=== PATIENT | male | born 1985 | race Caucasian/White ===

== ENCOUNTER 2017-08-12 13:32 | Emergency (ER) | payer BC, OTHER ==
[2017-08-12 14:23] VITALS: BP 136/86
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
[2017-08-12] MEDS ORDERED: Lidocaine 1% 10 ML MDV INJECT ONE (14:40)
== END 2017-08-12 16:03 | disposition home or self-care (01) ==
LOC: JD.ED 13:32
DX: S61.211A Laceration without foreign body of left index finger without damage to nail, initial encounter (principal); F17.210 Nicotine dependence, cigarettes, uncomplicated; W45.8XXA Other foreign body or object entering through skin, initial encounter
CPT/HCPCS: 12001; 99283-25

== ENCOUNTER 2017-12-11 00:08 | Emergency (ER) | payer BC ==
[2017-12-11 00:25] VITALS: BP 128/96
[2017-12-11] MEDS ORDERED: Dextrose 5%-0.9% NaCl 1,000 ML IV SCH (00:45)
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
[2017-12-11] MEDS ORDERED: Dicyclomine 10 MG Cap PO ONE (01:57)
--- NOTE | 2017-12-11 09:38 | CR ---
Chest: Portable view of the chest was obtained. Comparison: No prior study. Heart size and mediastinum are normal. Lungs are clear. Bony structures are grossly intact. Impression: 1. Nothing acute is identified on portable chest x-ray. Diagnostic code #1
== END 2017-12-11 02:20 | disposition home or self-care (01) ==
LOC: JD.ED 00:08
DX: K22.4 Dyskinesia of esophagus (principal); K44.9 Diaphragmatic hernia without obstruction or gangrene; F17.210 Nicotine dependence, cigarettes, uncomplicated
CPT/HCPCS: 36415; 71045; 80053; 80306; 82553; 83690; 84484; 85025; 86140; 93005; 96360; 99285; A9270; G0480; J7042; 93010; 99284-25

== ENCOUNTER 2018-03-12 22:31 | Emergency (ER) | payer BC, OTHER ==
[2018-03-12 22:44] VITALS: BP 142/111
[2018-03-13 00:07] LABS: ACETAMINOPHEN 0 ug/mL (10-30)
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
[2018-03-13] MEDS ORDERED: Nicotine 14 MG/24 Hr Patch TRDERM ONE (00:55)
== END 2018-03-13 14:42 ==
LOC: JD.ED 22:31
DX: F32.9 Major depressive disorder, single episode, unspecified (principal); R45.851 Suicidal ideations; F10.129 Alcohol abuse with intoxication, unspecified; F17.210 Nicotine dependence, cigarettes, uncomplicated; Y90.1 Blood alcohol level of 20-39 mg/100 ml
CPT/HCPCS: 36415; 80053; 80306; 84443; 85007; 85027; 93005; 99285; A9270; G0480

== ENCOUNTER 2022-07-05 14:57 | Emergency (ER) | payer BC, OTHER ==
[2022-07-05] MEDS ORDERED: Ketorolac 60 MG/2 ML SDV IM ONE (16:26)
[2022-07-05 18:15] VITALS: BP 125/78; PULSE 85
== END 2022-07-05 18:13 | disposition home or self-care (01) ==
LOC: JD.ED 14:57
DX: S92.144A Nondisplaced dome fracture of right talus, initial encounter for closed fracture (principal); E66.9 Obesity, unspecified; Z68.33 Body mass index [BMI] 33.0-33.9, adult; W10.9XXA Fall (on) (from) unspecified stairs and steps, initial encounter
CPT/HCPCS: 73610; 96372; 99283; J1885

== ENCOUNTER 2023-06-16 10:22 | Emergency (ER) | payer SELFPAY ==
[2023-06-16 10:36] VITALS: BP 146/81; PULSE 78
== END 2023-06-16 10:48 | disposition left against medical advice (07) ==
LOC: JD.ED 10:22
DX: Z53.21 Procedure and treatment not carried out due to patient leaving prior to being seen by health care provider (principal)

== ENCOUNTER 2024-05-02 10:21 | Emergency (ER) | payer SELFPAY ==
[2024-05-02 20:09] VITALS: BP 128/87; PULSE 60
== END 2024-05-02 15:45 | disposition home or self-care (01) ==
LOC: JD.ED 10:21
DX: S13.9XXA Sprain of joints and ligaments of unspecified parts of neck, initial encounter (principal); S23.9XXA Sprain of unspecified parts of thorax, initial encounter; Z79.899 Other long term (current) drug therapy; W01.0XXA Fall on same level from slipping, tripping and stumbling without subsequent striking against object, initial encounter; Y93.89 Activity, other specified
CPT/HCPCS: 72125; 72125-26; 72128; 72128-26; 73030-26-RT; 73030-RT; 99284

== ENCOUNTER 2025-08-10 06:38 | Emergency (ER) | payer BC, MEDICAID ==
[2025-08-10] MEDS ORDERED: Sodium Chloride 0.9% 10 ML Syringe FLUSH PRN (07:28)
[2025-08-10] MEDS: Sodium Chloride 0.9% 10 ML Syringe FLUSH ONE (07:46)
[2025-08-10] MEDS: Iopamidol 612 MG/ML 100 ML Bottle IVPUSH ONE (07:46)
[2025-08-10 07:49] LABS: BASOPHILS ABSOLUTE AUTO 0.0 K/mm3 (0.0-0.2); BASOPHILS PERCENT AUTO 0.4 % (0.0-1.0); EOSINOPHILS ABSOLUTE AUTO 0.2 K/mm3 (0.0-0.4); EOSINOPHILS PERCENT AUTO 3.2 % (0.0-6.0); IMMATURE GRAN ABSOLUTE AUTO 0.02 K/mm3 (0.00-0.05); IMMATURE GRAN PERCENT AUTO 0.3 % (0.0-0.4); LYMPHOCYTES ABSOLUTE AUTO 3.0 K/mm3 (1.0-4.8); LYMPHOCYTES PERCENT AUTO 40.1 % (24.0-44.0); MEAN PLATELET VOLUME 9.1 fl (9.4-12.4); MONOCYTES ABSOLUTE AUTO 0.6 K/mm3 (0.0-0.8); MONOCYTES PERCENT AUTO 7.4 % (0.0-8.0); NEUTROPHILS ABSOLUTE AUTO 3.7 K/mm3 (1.8-7.7); NEUTROPHILS PERCENT AUTO 48.6 % (41.0-71.0); NRBC ABSOLUTE 0.00 (0.00-0.02); NRBC PERCENT 0.0 % (0.0-0.2); PLATELET COUNT,PLT 210 K/mm3 (150-400); RED BLOOD CELL COUNT 4.65 M/mm3 (4.52-5.90); WHITE BLOOD CELL COUNT,WBC 7.56 K/mm3 (3.9-11.3)
[2025-08-10] MEDS: Ketorolac 15 MG/ML SDV IVPUSH ONE (08:10)
[2025-08-10 08:16] LABS: A/G RATIO 1.1 (1-2); ALANINE AMINOTRANSFERASE,ALT 24 U/L (16-63); ASPARTATE AMNIOTRANSFERASE,AST 15 U/L (15-37); BILIRUBIN TOTAL 0.4 mg/dL (0.2-1.0); BLOOD UREA NITROGEN,BUN 13 mg/dL (7-18); CARBON DIOXIDE,CO2 33 mEq/L (21-32); CHLORIDE,CL 105 mEq/L (98-107); CREATININE 1.0 mg/dL (0.7-1.3); ESTIMATED GFR 99 mL/min (>60); GLUCOSE RANDOM 82 mg/dL (70-99); POTASSIUM,K 4.1 mEq/L (3.5-5.1); PROTEIN TOTAL,TP 6.5 g/dl (6.4-8.2); SODIUM,NA 140 mEq/L (136-145)
[2025-08-10 09:39] LABS: APPEARANCE,URINE CLEAR (Clear); GLUCOSE,URINE NEGATIVE (Negative); OCCULT BLOOD,URINE NEGATIVE (Negative)
[2025-08-10 12:26] VITALS: BP 128/84; PULSE 86
== END 2025-08-10 11:55 | disposition home or self-care (01) ==
LOC: JD.ED 06:38
DX: M25.552 Pain in left hip (principal); R10.A2 Flank pain, left side; E66.9 Obesity, unspecified; Z79.899 Other long term (current) drug therapy
CPT/HCPCS: 36415; 73552; 74177; 80053; 81003; 83690; 85025; 96361; 96374; 99284; J1885; J7030; Q9967; 99283